=== PATIENT | female | born 2000 | race Caucasian/White ===

== ENCOUNTER 2022-10-30 09:18 | Outpatient (OUT) | payer OTHER, SELFPAY ==
--- NOTE | 2022-10-30 09:27 | XR_ITS ---
The [address] [address] Patient Name: RILEY PAL MRN: [id number] date: 2000 Sex: F Assigned Patient Location: RAD Current Patient Location: [facility] Accession/Order Number: [id number] Exam Date: 10/30/2022 10:15 Report Date: 10/30/2022 13:48 At the request of: ARUN CHIN Procedure: XR finger LT min 2V CLINICAL HISTORY: Hematoma, Crush Injury. The left thumb crushed in brake press. Bleeding by the thumbnail. EXAMINATION: Left thumb: 10/30/2022. COMPARISON: None. FINDINGS: 3 views are provided which demonstrate there is virtually nondisplaced fracture of the tuft of the distal phalanx of first digit. No other fractures or dislocations are seen. Surrounding soft tissues are normal. There are no abnormal calcifications or radiopaque foreign bodies. XR/XR finger LT min 2V IMPRESSION: 1. There is virtually nondisplaced fracture at the tuft of the distal phalanx of first digit. 2. No soft tissue swelling or soft tissue hematoma. Electronically authenticated by: JOSE MORALES Date: 10/30/2022 13:48
== END 2022-10-30 09:19 | disposition home or self-care (01) ==
PROVIDERS: Visit Provider Nurse Practitioner Family
DX: S67.02XA Crushing injury of left thumb, initial encounter (principal); S62.525A Nondisplaced fracture of distal phalanx of left thumb, initial encounter for closed fracture
CPT/HCPCS: 73140

== ENCOUNTER 2024-06-01 09:31 | Emergency (ER) | payer OTHER, SELFPAY ==
[2024-06-01 09:35] VITALS: BP 127/92; PULSE 73; TEMP 37.3; O2SAT 98; BMI 25.8
--- NOTE | 2024-06-01 09:54 | ED.FEMALEGU1 ---
HPI - Female Genitourinary General Chief complaint: Urogenital-Female Stated complaint: vaginal discharge Time Seen by Provider: 06/01/24 09:32 Source: patient Mode of arrival: walk-in History of Present Illness HPI Narrative: 23-year-old female presents to the emergency department for vaginal itching. She thought she had a yeast infection and she used Monistat but it did not help. She has not had any vaginal discharge and has not been on antibiotics recently. She tells me she is not at all concerned about an STD but she is sexually active. No abdominal pain or vomiting. LMP was approximately 10 days ago. Related Data Previous Rx's ?Medication ?Instructions ?Recorded metronidazole 250 mg tablet 250 mg PO BID 10 days #20 tabs 06/01/24 Allergies Allergy/AdvReac Type Severity Reaction Status Date / Time No Known Drug Allergies Allergy Verified 06/01/24 09:35 Review of Systems ROS Narrative A ten point review of systems is negative except as noted above. PFSH PFSH Social History Little interest or pleasure in doing things: not at all Feeling down, depressed, or hopeless: not at all Exam Narrative Exam Narrative: Nurses note and vital signs reviewed and patient is not hypoxic. General: The patient appears well and in no apparent distress. Patient is resting comfortably on cart. Skin: Warm, dry, no pallor noted. There is no rash noted. Head: Normocephalic, atraumatic Eye: Normal conjunctiva, no drainage Ears, Nose, Mouth, and Throat: oral mucosa is moist. Nares patent. Cardiovascular: Regular Rate and Rhythm Respiratory: Patient is in no distress, no accessory muscle use, lungs are clear to auscultation, no wheezing, rales or rhonchi Back: non-tender GI: Soft and nontender Musculoskeletal: No joint swelling Neurological: A&O, normal speech Psychiatric: Cooperative Constitutional Vital Signs, click to edit/add: Last Vital Signs Temp 99.2 F 06/01/24 09:35 Pulse 73 06/01/24 09:35 Resp 16 06/01/24 09:35 BP 127/92 H 06/01/24 09:35 Pulse Ox 98 06/01/24 09:35 O2 Del Method Room Air 06/01/24 09:35 Course Vital Signs Vital signs: Vital Signs Temperature 99.2 F 06/01/24 09:35 Pulse Rate 73 06/01/24 09:35 Respiratory Rate 16 06/01/24 09:35 Blood Pressure 127/92 H 06/01/24 09:35 Pulse Oximetry 98 06/01/24 09:35 Oxygen Delivery Method Room Air 06/01/24 09:35 Temperature 99.2 F 06/01/24 09:35 Pulse Rate 73 06/01/24 09:35 Respiratory Rate 16 06/01/24 09:35 Blood Pressure 127/92 H 06/01/24 09:35 Pulse Oximetry 98 06/01/24 09:35 Oxygen Delivery Method Room Air 06/01/24 09:35 MDM - Female Genitourinary MDM Narrative Medical decision making narrative: She is not . Uriprobes were ordered. She was given a Diflucan here and prescribed Flagyl. She was offered a pelvic exam but has never had 1 and would prefer not to have that performed today. She is referred to gynecology for appropriate follow-up and was encouraged to do so. Treatment diagnosis and follow-up were discussed with the patient. Differential Diagnosis Differential diagnosis: Likely urinary tract infection, bacterial vaginosis, trichomoniasis and cervicitis Lab Data Attestation: I reviewed the patient's lab results. Labs: Lab Results 06/01/24 Range/Units 09:40 Urine Color Yellow (YELLOW) Urine Clarity Cloudy A (CLEAR) Urine pH 6.0 (5.0-9.0) Ur Specific [place] >=1.030 A (1.005-1.025) Urine Protein Trace (NEG/TRACE) mg/dL Urine Glucose (UA) Negative (NEGATIVE) mg/dL Urine Ketones Trace A (NEGATIVE) mg/dL Urine Occult Blood Trace-i (NEGATIVE) Urine Nitrite Negative (NEGATIVE) Urine Bilirubin Negative (NEGATIVE) Urine Urobilinogen 1.0 (0.2-1.0) EU/dL Ur Leukocyte Esterase Moderate A (NEGATIVE) Urine RBC 2-5 A (0-2) #/HPF Urine WBC 2-5 A (NONE SEEN) #/HPF Ur Squamous Epith Cells Many A (NONE/RARE) #/LPF Urine Bacteria Small A (NONE SEEN) #/HPF Urine Mucus Large A (NONE SEEN) Urine HCG, Qual Negative (NEGATIVE) Discharge Plan Discharge Chief Complaint: Urogenital-Female Clinical Impression: Vaginitis Patient Disposition: Home, Self-Care Time of Disposition Decision: 10:13 Condition: Good Mode of Transportation: Private Vehicle Prescriptions / Home Meds: New metronidazole 250 mg tablet 250 mg PO BID 10 Days Qty: 20 0RF Print Language: [place] Instructions: Bacterial Vaginosis (ED) Referrals: Syed Lowe DO [Physician] - 1 week Physician,Non-Staff, [Primary Care Provider] - 1 week
[2024-06-01 10:01] LABS: Bilirubin Urine NEGATIVE (NEGATIVE); Blood Urine TRACE-I (NEGATIVE); Glucose Urine UA NEGATIVE (NEGATIVE); Ketones Urine TRACE mg/dL (NEGATIVE); Leukocyte Esterase Urine MODERATE (NEGATIVE); Nitrite Urine NEGATIVE (NEGATIVE); Protein Urine TRACE mg/dL (NEG/TRACE); Specific Gravity Urine >=1.030 (1.005-1.025)
[2024-06-01 10:02] LABS: HCG Qualitative Urine* NEGATIVE (NEGATIVE); Internal Control Within Normal Limits
[2024-06-01 10:04] LABS: Clarity Urine CLOUDY (CLEAR); Color Urine YELLOW (YELLOW)
[2024-06-01 10:09] LABS: Mucus Urine LARGE (NONE SEEN); Squamous Epithelial Cell Urine MANY #/LPF (NONE/RARE)
[2024-06-01 10:11] LABS: Bacteria Urine SMALL #/HPF (NONE SEEN)
[2024-06-01] MEDS: FLUCONAZOLE 150 MG TABLET PO (10:15)
[2024-06-04 07:08] LABS: Neisseria gonorrhoeae, NAA Negative (Negative)
== END 2024-06-01 10:25 | disposition home or self-care (01) ==
PROVIDERS: Emergency Provider Emergency Medicine
DX: N76.0 Acute vaginitis (principal)
CPT/HCPCS: 81001; 84703; 87491; 87591; 99283